=== PATIENT | male | born 1940 ===

== ENCOUNTER 2018-06-23 13:58 | Emergency (ER) | payer OTHER ==
[~2018-06-23] VITALS: Ht 170.2 cm; Wt 81.6 kg
[~2018-06-23 13:58] MED LIST: AMBIEN PAK10 MG; COZAAR50 MG; PHENYTOIN100 GM; TRAMADOL HCL25 GM
[2018-06-23] MEDS ORDERED: AVAPRO75 MG (14:28)
[2018-06-23] MEDS ORDERED: LEVODOPA25 GM (14:29)
[2018-06-23] MEDS ORDERED: FOLIC ACID1 MG (14:29)
[2018-06-23] MEDS ORDERED: VIT B 12 (14:29)
== END 2018-06-23 19:50 | disposition home or self-care (01) ==
LOC: ER 13:58 → CPU-OBS 14:01 → ER 14:01
DX: I16.0 Hypertensive urgency (principal); I10 Essential (primary) hypertension; K59.09 Other constipation